=== PATIENT | male | born 1990 | race Caucasian/White ===

== ENCOUNTER 2019-05-13 08:22 | Emergency (ER) | payer OTHER ==
[2019-05-13 08:31] VITALS: BP 133/82; PULSE 84; TEMP 97.8; BMI 30.5
[2019-05-13] MEDS ORDERED: BACITRACIN 15 GM TUBE TOPICAL OINTMENT ONE (08:32)
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
== END 2019-05-13 09:18 | disposition home or self-care (01) ==
LOC: JERFT 08:22
DX: S80.212A Abrasion, left knee, initial encounter (principal); V47.5XXA Car driver injured in collision with fixed or stationary object in traffic accident, initial encounter; Y93.89 Activity, other specified; Y92.410 Unspecified street and highway as the place of occurrence of the external cause
CPT/HCPCS: 73562-TC-LT-FY; 99281-25

== ENCOUNTER 2021-10-11 11:29 | Emergency (ER) | payer BC, OTHER | END 2021-10-11 11:46 | LOC: JVIRT 11:29 | DX: U07.1 COVID-19 (principal); B34.9 Viral infection, unspecified | CPT/HCPCS: C9803; Q3014-GT; U0003; U0005 ==